=== PATIENT | female | born 1940 | race Caucasian/White ===

== ENCOUNTER 2016-11-25 17:50 | Emergency (ER) | payer OTHER, MEDICAID ==
[~2016-11-25] VITALS: Ht 177.8 cm; Wt 113.6 kg
[~2016-11-25 17:50] MED LIST: AMLO10TA4 PO; AMOX1TAB61 PO; ASPI-624; ASPI-650 PO; ASPI325T4 PO; CELE200C PO; DIAZ2TAB; DIAZ5TAB PO; DIAZEPAM; GABA300C10 PO; GABA600T2 PO; HYDR-3307; HYDR-3307 PO; LORA10CA PO; LOVA20TA2 PO; MECL25TA4 PO; METO10TA82 PO; NABU750T PO; Nabumetone; OMEP-110; OMEP-110 PO; ONDA4TAB7 PO; PANT20TA2; PANT40TA3 PO; PARO20TA4 PO; PARO20TA55 PO; PHENERGAN PO; PRAM0.255 PO; PRAM0.5T5 PO; ROPI2TAB3; ROPI2TAB3 PO; SOLI10TA PO; TOLT2CAP PO; [UNRECOGNIZED DRUG - OTHER] PO
[2016-11-25] MEDS ORDERED: ONDA4TAB10 PO (18:29)
[2016-11-25] MEDS ORDERED: LOSA1TAB12 PO (18:29)
[2016-11-25] MEDS ORDERED: SODIUM CHLORIDE FLUSH 10ML SYR IVF ONE (18:30)
[2016-11-25] MEDS ORDERED: MORPHINE SULFATE 4 MG/ML, 1ML IVPush PRN (18:30)
[2016-11-25] MEDS ORDERED: ASPIRIN 81 MG TABLET CHEW PO ONE (18:30)
[2016-11-25] MEDS ORDERED: ONDANSETRON 2MG/ML, 2ML IVPush ONE (18:30)
[2016-11-25] MEDS ORDERED: ASPIRIN 81 MG TABLET CHEW ONE (18:55)
[2016-11-25] MEDS ORDERED: ONDANSETRON 2MG/ML, 2ML ONE (18:55)
[2016-11-25] MEDS ORDERED: MORPHINE SULFATE 4 MG/ML, 1ML ONE (18:55)
[2016-11-25 19:02] LABS: BLOOD UREA NITROGEN 14 mg/dL (7-18)
[2016-11-25 19:06] LABS: IS PT STATUS REG ER OR PRE ER? YES
[2016-11-25] MEDS ORDERED: METOCLOPRAMIDE 5 MG/ML, 2ML ONE (19:11)
[2016-11-25] MEDS ORDERED: MAALOX/HYOSCYAMINE/LIDOCAINE 45 ML BOTTLE ONE (19:11)
[2016-11-25] MEDS ORDERED: METOCLOPRAMIDE 5 MG/ML, 2ML IVPush ONE (19:30)
[2016-11-25] MEDS ORDERED: MAALOX/HYOSCYAMINE/LIDOCAINE 45 ML BOTTLE PO ONE (19:30)
[2016-11-25 22:15] LABS: IS PT STATUS REG ER OR PRE ER? YES
[2016-11-25 22:45] VITALS: BP 175/82
== END 2016-11-26 00:08 | disposition home or self-care (01) ==
LOC: ED 20:09
DX: R11.2 Nausea with vomiting, unspecified (principal); I10 Essential (primary) hypertension; M19.90 Unspecified osteoarthritis, unspecified site; E78.5 Hyperlipidemia, unspecified; I25.10 Atherosclerotic heart disease of native coronary artery without angina pectoris; Z90.49 Acquired absence of other specified parts of digestive tract; Z90.710 Acquired absence of both cervix and uterus; Z88.6 Allergy status to analgesic agent
CPT/HCPCS: 36415; 71010; 74176; 80048; 82040; 84484; 85025; 93005; 96374; 96375; 99285; J2405; J2765

== ENCOUNTER 2016-11-28 18:07 | Emergency (ER) | payer OTHER, MEDICAID ==
[~2016-11-28] VITALS: Ht 177.8 cm; Wt 112.4 kg
[~2016-11-28 18:07] MED LIST changes: +LOSA1TAB12 PO; +ONDA4TAB10 PO
[2016-11-28] MEDS ORDERED: MORPHINE SULFATE 4 MG/ML, 1ML IVPush PRN (19:00)
[2016-11-28] MEDS ORDERED: SODIUM CHLORIDE FLUSH 10ML SYR IVF ONE (19:00)
[2016-11-28] MEDS ORDERED: ONDANSETRON 2MG/ML, 2ML IVPush ONE (19:00)
[2016-11-28] MEDS ORDERED: ACETAMINOPHEN 325 MG TABLET ONE (19:16)
[2016-11-28] MEDS ORDERED: ONDANSETRON ODT 4 MG ONE (19:16)
[2016-11-28 19:43] LABS: BLOOD UREA NITROGEN 14 mg/dL (7-18)
[2016-11-28 19:48] LABS: IS PT STATUS REG ER OR PRE ER? YES
[2016-11-28] MEDS ORDERED: ACETAMINOPHEN 325 MG TABLET PO ONE (20:00)
[2016-11-28] MEDS ORDERED: ONDANSETRON ODT 4 MG PO ONE (20:00)
[2016-11-28 20:24] VITALS: BP 145/74
== END 2016-11-28 20:39 | disposition home or self-care (01) ==
LOC: ED 20:20
DX: R51 Headache (principal); R11.0 Nausea; E87.1 Hypo-osmolality and hyponatremia; I10 Essential (primary) hypertension; Z88.6 Allergy status to analgesic agent; E78.5 Hyperlipidemia, unspecified; F17.210 Nicotine dependence, cigarettes, uncomplicated; Z88.8 Allergy status to other drugs, medicaments and biological substances
CPT/HCPCS: 36415; 70450; 71010; 80048; 82040; 83880; 84484; 85025; 93005; 99285; Q0162

== ENCOUNTER 2016-12-24 14:05 | Inpatient (IN) | payer OTHER, MEDICAID ==
[~2016-12-24] VITALS: Ht 177.8 cm; Wt 121.0 kg
[2016-12-24] MEDS ORDERED: ONDANSETRON 2MG/ML, 2ML IVPush ONE (14:30)
[2016-12-24] MEDS ORDERED: SODIUM CHLORIDE FLUSH 10ML SYR IVF ONE (14:30)
[2016-12-24] MEDS ORDERED: SODIUM CHLORIDE 0.9% 1,000ML IVBOLUS ONE (14:30)
[2016-12-24] MEDS ORDERED: ONDANSETRON 2MG/ML, 2ML ONE ×2 (14:55→18:31)
[2016-12-24 14:57] LABS: BLOOD UREA NITROGEN 8 mg/dL (7-18)
[2016-12-24 15:02] LABS: ASPARTATE AMINO TRANSFERASE 17 U/L (15-37)
[2016-12-24] MEDS ORDERED: OMNIPAQUE 350 MG/ML, 150 ML BOTTLE ONE (16:50)
[2016-12-24] MEDS ORDERED: SODIUM CHLORIDE 0.9% 1,000 ML IV ONE (18:19)
[2016-12-24] MEDS ORDERED: SODIUM CHLORIDE FLUSH 10ML SYR IVF PRN (18:30)
[2016-12-24] MEDS ORDERED: ONDANSETRON 2MG/ML, 2ML IVPush PRN ×2 (18:30→19:30)
[2016-12-24] MEDS ORDERED: LORazepam 2 MG/ML, 1ML ONE (18:31)
[2016-12-24] MEDS ORDERED: LORazepam 2 MG/ML, 1ML IVPush ONE (19:00)
[2016-12-24] MEDS ORDERED: D5%-0.45% NACL 1,000 ML IV SCH (19:18)
[2016-12-24] MEDS ORDERED: LABETALOL 5MG/ML 40ML VIAL IVPush PRN (19:30)
[2016-12-24] MEDS ORDERED: HEPARIN 5,000 UNITS/ML, 1ML SQ SCH (19:30)
[2016-12-24] MEDS ORDERED: HYDROCHLOROTHIAZIDE 25 MG TABLET PO ONE (19:30)
[2016-12-24] MEDS ORDERED: PROMETHAZINE 25 MG/ML, 1ML IM PRN (19:30)
[2016-12-24] MEDS ORDERED: NICOTINE 7 MG/24 HR PATCH.TD24 TD SCH (19:30)
[2016-12-24] MEDS ORDERED: PAROXETINE 20 MG TABLET PO SCH (21:00)
[2016-12-24] MEDS: PANTOPROZOLE 40MG TABLET PO SCH (22:13)
[2016-12-24] MEDS: PRAMIPEXOLE 0.25MG TABLET PO SCH (22:14)
[2016-12-24] MEDS: OXYBUTYNIN CHLORIDE 5 MG TABLET PO SCH (22:14)
[2016-12-24] MEDS: ROPINIROLE 1MG TABLET PO SCH (22:14)
[2016-12-24 22:23] VITALS: BP 159/84
[2016-12-25] MEDS: SODIUM CHLORIDE 0.9% 1,000 ML IV SCH ×2 (00:31→17:18)
[2016-12-25] MEDS ORDERED: GABAPENTIN 300 MG CAPSULE PO ONE (01:30)
[2016-12-25 01:59] VITALS: BP 164/99
[2016-12-25] MEDS: ONDANSETRON 2MG/ML, 2ML IVPush PRN ×2 (02:41→14:13)
[2016-12-25 05:33] LABS: BLOOD UREA NITROGEN 7 mg/dL (7-18)
[2016-12-25 06:55] VITALS: BP 162/83
[2016-12-25] MEDS: OXYBUTYNIN CHLORIDE 5 MG TABLET PO SCH ×3 (07:50→21:14)
[2016-12-25] MEDS: LOSARTAN 50MG TABLET PO SCH (07:50)
[2016-12-25] MEDS: METOCLOPRAMIDE 10MG TABLET PO SCH ×3 (07:51→17:18)
[2016-12-25] MEDS: PANTOPROZOLE 40MG TABLET PO SCH ×2 (07:51→19:21)
[2016-12-25] MEDS ORDERED: POTASSIUM CHLORIDE 40 MEQ in SODIUM CHLORIDE 0.9% 500 ML IV ONE (09:00)
[2016-12-25 13:06] VITALS: BP 135/85
[2016-12-25 19:23] VITALS: BP 150/79
[2016-12-25] MEDS: HYDROcodone/APAP 10/325 MG TABLET PO PRN (19:33)
[2016-12-25] MEDS ORDERED: PAROXETINE 20 MG TABLET PO SCH (21:00)
[2016-12-25] MEDS: PRAMIPEXOLE 0.25MG TABLET PO SCH (21:14)
[2016-12-25] MEDS: ROPINIROLE 1MG TABLET PO SCH (21:15)
[2016-12-26 01:16] VITALS: BP 175/99
[2016-12-26] MEDS: ONDANSETRON 2MG/ML, 2ML IVPush PRN ×2 (02:43→12:53)
[2016-12-26] MEDS ORDERED: ENALAPRILAT 1.25 MG/ML, 2ML IV PRN (03:00)
[2016-12-26 03:05] VITALS: BP 157/79
[2016-12-26 05:09] LABS: BLOOD UREA NITROGEN 5 mg/dL (7-18)
[2016-12-26 07:27] VITALS: BP 152/68
[2016-12-26] MEDS ORDERED: PROMETHAZINE 12.5 MG SUPP PR PRN ×2 (08:00→09:50)
[2016-12-26] MEDS ORDERED: POTASSIUM CHLORIDE 20 MEQ TAB.ER.PRT PO ONE (09:30)
[2016-12-26] MEDS: METOCLOPRAMIDE 10MG TABLET PO SCH ×3 (09:44→17:30)
[2016-12-26] MEDS: OXYBUTYNIN CHLORIDE 5 MG TABLET PO SCH ×3 (09:44→20:52)
[2016-12-26] MEDS: PANTOPROZOLE 40MG TABLET PO SCH ×2 (09:44→19:44)
[2016-12-26] MEDS: LOSARTAN 50MG TABLET PO SCH (09:44)
[2016-12-26] MEDS: HYDROcodone/APAP 10/325 MG TABLET PO PRN ×2 (10:21→17:30)
[2016-12-26 12:24] VITALS: BP 169/89
[2016-12-26] MEDS: SODIUM CHLORIDE 0.9% 1,000 ML IV SCH ×2 (12:57→19:45)
[2016-12-26 18:45] VITALS: BP 104/65
[2016-12-26] MEDS: PRAMIPEXOLE 0.25MG TABLET PO SCH (20:52)
[2016-12-26] MEDS: ROPINIROLE 1MG TABLET PO SCH (20:53)
[2016-12-27] MEDS: HYDROcodone/APAP 10/325 MG TABLET PO PRN ×3 (00:59→12:38)
[2016-12-27 01:37] VITALS: BP 118/71
[2016-12-27 05:21] LABS: BLOOD UREA NITROGEN 9 mg/dL (7-18)
[2016-12-27 06:55] VITALS: BP 144/83
[2016-12-27] MEDS: LOSARTAN 50MG TABLET PO SCH (09:33)
[2016-12-27] MEDS: METOCLOPRAMIDE 10MG TABLET PO SCH ×3 (09:33→17:13)
[2016-12-27] MEDS: OXYBUTYNIN CHLORIDE 5 MG TABLET PO SCH ×2 (09:33→17:13)
[2016-12-27] MEDS: PANTOPROZOLE 40MG TABLET PO SCH (09:33)
[2016-12-27 12:17] VITALS: BP 175/97
[2016-12-27] MEDS: LACTOBACILLUS 1GM/ PACKET PO SCH ×2 (12:32→17:13)
[2016-12-27] MEDS ORDERED: ACID1GRA2 PO (13:15)
[2016-12-27] MEDS ORDERED: LOSA50TA2 PO (13:15)
[2016-12-27] MEDS ORDERED: PANT40TA5 PO (13:23)
[2016-12-27 18:21] VITALS: BP 140/80
[2016-12-27] MEDS ORDERED: PARO10TA24 PO (18:50)
[2016-12-29 18:07] LABS: HELICOBACTER PYLORI IGG <0.4 U/mL (0.0-0.8); HELICOBACTER PYLORI IGM <9.0 units (0.0-8.9)
== END 2016-12-27 19:54 | disposition home or self-care (01) | DRG 392 ==
LOC: ED 14:36 → EDIP 18:19 → INTOOBSV 18:19 → 3NE 20:18 → OBSVTOIN 12-25 10:03
PROVIDERS: ADMIT Family Medicine; ATTEND Family Medicine
DX: K52.9 Noninfective gastroenteritis and colitis, unspecified (principal); E87.1 Hypo-osmolality and hyponatremia; E66.9 Obesity, unspecified; E78.5 Hyperlipidemia, unspecified; E86.0 Dehydration; F17.210 Nicotine dependence, cigarettes, uncomplicated; G25.81 Restless legs syndrome; I10 Essential (primary) hypertension; I25.10 Atherosclerotic heart disease of native coronary artery without angina pectoris; Z96.652 Presence of left artificial knee joint; J44.9 Chronic obstructive pulmonary disease, unspecified; K21.9 Gastro-esophageal reflux disease without esophagitis; K44.9 Diaphragmatic hernia without obstruction or gangrene; M19.90 Unspecified osteoarthritis, unspecified site; N32.81 Overactive bladder; Z81.8 Family history of other mental and behavioral disorders; Z95.5 Presence of coronary angioplasty implant and graft; Z90.710 Acquired absence of both cervix and uterus; I25.2 Old myocardial infarction; Z90.49 Acquired absence of other specified parts of digestive tract; Z88.8 Allergy status to other drugs, medicaments and biological substances; Z68.38 Body mass index [BMI] 38.0-38.9, adult
CPT/HCPCS: 36415; 74177; 80048; 80053; 81001; 82436; 82533; 82570; 83690; 83935; 84133; 84300; 84443; 85025; 86677; 87086; 87324; 89055; 93005; 96361; 96374; 96375; 96376; G0378; J1644; J2405; J3480; Q9967; J2060; J7030; J7040

== ENCOUNTER 2017-01-04 15:26 | Inpatient (IN) | payer OTHER, MEDICAID ==
[~2017-01-04] VITALS: Ht 177.8 cm; Wt 119.6 kg
[~2017-01-04 15:26] MED LIST changes: +ACID1GRA2 PO; +LOSA50TA2 PO; +PANT40TA5 PO; +PARO10TA24 PO
[2017-01-04] MEDS ORDERED: ONDANSETRON ODT 4 MG ONE (15:51)
[2017-01-04] MEDS ORDERED: SODIUM CHLORIDE 0.9% 1,000ML IVBOLUS ONE (16:00)
[2017-01-04] MEDS ORDERED: MAALOX/HYOSCYAMINE/LIDOCAINE 45 ML BTL PO ONE (16:00)
[2017-01-04] MEDS ORDERED: ONDANSETRON 2MG/ML, 2ML IVPush ONE (16:00)
[2017-01-04] MEDS ORDERED: SODIUM CHLORIDE FLUSH 10ML SYR IVF ONE (16:00)
[2017-01-04] MEDS ORDERED: MAALOX/HYOSCYAMINE/LIDOCAINE 45 ML BTL ONE (16:10)
[2017-01-04] MEDS ORDERED: ONDANSETRON 2MG/ML, 2ML ONE (16:10)
[2017-01-04] MEDS ORDERED: LOVA10TA PO (16:24)
[2017-01-04] MEDS ORDERED: METO5TAB57 PO (16:24)
[2017-01-04] MEDS ORDERED: PANT20TA2 PO (16:24)
[2017-01-04] MEDS ORDERED: ONDA4TAB10 PO (16:24)
[2017-01-04 16:30] LABS: HEMOGLOBIN 13.7 g/dL (11.7-16.4); WHITE BLOOD COUNT 6.7 x10^3/uL (3.4-10)
[2017-01-04] MEDS ORDERED: FAMOTIDINE 20 MG/2 ML IVP ONE (16:30)
[2017-01-04] MEDS ORDERED: FAMOTIDINE 20 MG/2 ML ONE (16:43)
[2017-01-04 16:46] LABS: ASPARTATE AMINO TRANSFERASE 16 U/L (15-37); BLOOD UREA NITROGEN 11 mg/dL (7-18)
[2017-01-04 16:48] LABS: IS PT STATUS REG ER OR PRE ER? YES
[2017-01-04] MEDS ORDERED: METOCLOPRAMIDE 5 MG/ML, 2ML ONE (17:51)
[2017-01-04] MEDS ORDERED: METOCLOPRAMIDE 5 MG/ML, 2ML IVPush ONE (18:00)
[2017-01-04] MEDS ORDERED: ONDANSETRON ODT 4 MG PO PRN (20:30)
[2017-01-04] MEDS ORDERED: ENALAPRILAT 1.25 MG/ML, 2ML IVPush PRN (20:30)
[2017-01-04] MEDS ORDERED: POLYETHYLENE GLYCOL 17 GM PACKET PO PRN (20:30)
[2017-01-04 20:50] VITALS: BP 145/80
[2017-01-04] MEDS ORDERED: NICOTINE GUM 2 MG BC PRN (21:30)
[2017-01-04] MEDS: PAROXETINE 20 MG TABLET PO SCH (21:42)
[2017-01-04] MEDS: LOVASTATIN 40 MG TABLET PO SCH (21:42)
[2017-01-04] MEDS: PANTOPROZOLE 40MG TABLET PO SCH (21:43)
[2017-01-04] MEDS: AMLODIPINE 5 MG TABLET PO SCH (21:43)
[2017-01-04] MEDS: PRAMIPEXOLE 0.25MG TABLET PO SCH (21:44)
[2017-01-04] MEDS: METOCLOPRAMIDE 10MG TABLET PO SCH (21:44)
[2017-01-04] MEDS: ENOXAPARIN 40 MG/0.4 ML SQ SCH (21:45)
[2017-01-04] MEDS: ROPINIROLE 1MG TABLET PO SCH (21:45)
[2017-01-04] MEDS: ONDANSETRON 2MG/ML, 2ML IVPush PRN (22:45)
[2017-01-04 22:56] LABS: IS PT STATUS REG ER OR PRE ER? NO
[2017-01-05 00:17] VITALS: BP 165/96
[2017-01-05] MEDS: METOCLOPRAMIDE 5 MG/ML, 2ML IVPush PRN (03:01)
[2017-01-05] MEDS: HYDROcodone/APAP 5/325 TABLET PO PRN ×3 (03:28→22:11)
[2017-01-05 06:49] VITALS: BP 142/74
[2017-01-05] MEDS: METOCLOPRAMIDE 10MG TABLET PO SCH ×4 (11:00→22:09)
[2017-01-05] MEDS: LOSARTAN 50MG TABLET PO SCH (11:58)
[2017-01-05] MEDS: PANTOPROZOLE 40MG TABLET PO SCH ×2 (11:58→22:09)
[2017-01-05] MEDS: SENNA/DOCUSATE TABLET PO SCH (11:59)
[2017-01-05 14:30] VITALS: BP 122/80
[2017-01-05 20:42] VITALS: BP 124/72
[2017-01-05] MEDS: LOVASTATIN 40 MG TABLET PO SCH (22:08)
[2017-01-05] MEDS: ROPINIROLE 1MG TABLET PO SCH (22:08)
[2017-01-05] MEDS: AMLODIPINE 5 MG TABLET PO SCH (22:10)
[2017-01-05] MEDS: PRAMIPEXOLE 0.25MG TABLET PO SCH (22:10)
[2017-01-05] MEDS: PAROXETINE 20 MG TABLET PO SCH (22:10)
[2017-01-05] MEDS: ENOXAPARIN 40 MG/0.4 ML SQ SCH (22:11)
[2017-01-06 02:08] VITALS: BP 148/80
[2017-01-06] MEDS: ONDANSETRON 2MG/ML, 2ML IVPush PRN ×2 (04:53→11:18)
[2017-01-06] MEDS: HYDROcodone/APAP 5/325 TABLET PO PRN ×4 (04:58→22:55)
[2017-01-06 07:34] VITALS: BP 126/70
[2017-01-06] MEDS: LOSARTAN 50MG TABLET PO SCH (09:29)
[2017-01-06] MEDS: PANTOPROZOLE 40MG TABLET PO SCH ×2 (09:29→20:54)
[2017-01-06] MEDS: SENNA/DOCUSATE TABLET PO SCH (09:29)
[2017-01-06] MEDS: METOCLOPRAMIDE 10MG TABLET PO SCH ×4 (09:29→20:54)
[2017-01-06] MEDS: METOCLOPRAMIDE 5 MG/ML, 2ML IVPush PRN (14:20)
[2017-01-06 14:27] VITALS: BP 130/82
[2017-01-06] MEDS: ACETAMINOPHEN 325 MG TABLET PO PRN (19:55)
[2017-01-06] MEDS: PRAMIPEXOLE 0.25MG TABLET PO SCH (20:54)
[2017-01-06] MEDS: AMLODIPINE 5 MG TABLET PO SCH (20:54)
[2017-01-06] MEDS: PAROXETINE 20 MG TABLET PO SCH (20:54)
[2017-01-06] MEDS: LOVASTATIN 40 MG TABLET PO SCH (20:55)
[2017-01-06] MEDS: ROPINIROLE 1MG TABLET PO SCH (20:55)
[2017-01-06] MEDS: ENOXAPARIN 40 MG/0.4 ML SQ SCH (21:44)
[2017-01-06 21:52] VITALS: BP 147/77
[2017-01-07 02:20] VITALS: BP 130/81
[2017-01-07] MEDS: ONDANSETRON 2MG/ML, 2ML IVPush PRN ×2 (03:16→10:27)
[2017-01-07] MEDS: HYDROcodone/APAP 5/325 TABLET PO PRN ×2 (03:43→10:28)
[2017-01-07 06:24] VITALS: BP 123/76
[2017-01-07] MEDS: ACETAMINOPHEN 325 MG TABLET PO PRN (06:49)
[2017-01-07 06:59] LABS: BLOOD UREA NITROGEN 6 mg/dL (7-18)
[2017-01-07] MEDS: METOCLOPRAMIDE 10MG TABLET PO SCH ×4 (07:00→20:37)
[2017-01-07] MEDS: SENNA/DOCUSATE TABLET PO SCH (09:00)
[2017-01-07] MEDS: LOSARTAN 50MG TABLET PO SCH (10:27)
[2017-01-07] MEDS: PANTOPROZOLE 40MG TABLET PO SCH ×2 (10:27→20:37)
[2017-01-07] MEDS ORDERED: PROMETHAZINE 12.5 MG SUPP PR PRN (11:40)
[2017-01-07] MEDS ORDERED: PROMETHAZINE 12.5 MG SUPP PR ONE (15:30)
[2017-01-07 15:31] VITALS: BP 128/74
[2017-01-07] MEDS ORDERED: ENALAPRILAT 1.25 MG/ML, 2ML IVPush PRN (16:30)
[2017-01-07] MEDS ORDERED: HYDROcodone/APAP 10/325 MG TABLET PO ONE (19:00)
[2017-01-07 19:13] VITALS: BP 116/76
[2017-01-07] MEDS: ROPINIROLE 1MG TABLET PO SCH (20:36)
[2017-01-07] MEDS: PAROXETINE 20 MG TABLET PO SCH (20:37)
[2017-01-07] MEDS: AMLODIPINE 5 MG TABLET PO SCH (20:37)
[2017-01-07] MEDS: LOVASTATIN 40 MG TABLET PO SCH (20:38)
[2017-01-07] MEDS: PRAMIPEXOLE 0.25MG TABLET PO SCH (20:38)
[2017-01-07] MEDS: ENOXAPARIN 40 MG/0.4 ML SQ SCH (20:40)
[2017-01-08] MEDS: ONDANSETRON 2MG/ML, 2ML IVPush PRN ×2 (01:20→10:17)
[2017-01-08 01:53] VITALS: BP 126/74
[2017-01-08 05:09] LABS: HEMATOCRIT 39.9 % (34.6-47.8); HEMOGLOBIN 13.2 g/dL (11.7-16.4); WHITE BLOOD COUNT 6.7 x10^3/uL (3.4-10)
[2017-01-08 05:18] LABS: BLOOD UREA NITROGEN 9 mg/dL (7-18)
[2017-01-08] MEDS: METOCLOPRAMIDE 10MG TABLET PO SCH ×4 (06:28→21:32)
[2017-01-08 07:20] VITALS: BP 121/75
[2017-01-08] MEDS: LOSARTAN 50MG TABLET PO SCH (07:44)
[2017-01-08] MEDS: PANTOPROZOLE 40MG TABLET PO SCH ×2 (07:44→21:32)
[2017-01-08] MEDS: SENNA/DOCUSATE TABLET PO SCH (07:44)
[2017-01-08] MEDS: ACETAMINOPHEN 325 MG TABLET PO PRN ×2 (07:44→12:59)
[2017-01-08 14:34] VITALS: BP 132/74
[2017-01-08] MEDS: HYDROcodone/APAP 5/325 TABLET PO PRN ×2 (15:37→21:35)
[2017-01-08 19:00] VITALS: BP 138/80
[2017-01-08] MEDS: PAROXETINE 20 MG TABLET PO SCH (21:32)
[2017-01-08] MEDS: LOVASTATIN 40 MG TABLET PO SCH (21:33)
[2017-01-08] MEDS: AMLODIPINE 5 MG TABLET PO SCH (21:33)
[2017-01-08] MEDS: ROPINIROLE 1MG TABLET PO SCH (21:33)
[2017-01-08] MEDS: PRAMIPEXOLE 0.25MG TABLET PO SCH (21:33)
[2017-01-08] MEDS: ENOXAPARIN 40 MG/0.4 ML SQ SCH (21:36)
[2017-01-09 01:59] VITALS: BP 143/82
[2017-01-09] MEDS: HYDROcodone/APAP 5/325 TABLET PO PRN ×2 (03:58→10:14)
[2017-01-09] MEDS: METOCLOPRAMIDE 10MG TABLET PO SCH ×3 (06:15→15:48)
[2017-01-09 08:16] VITALS: BP 143/81
[2017-01-09] MEDS: LOSARTAN 50MG TABLET PO SCH (10:11)
[2017-01-09] MEDS: PANTOPROZOLE 40MG TABLET PO SCH (10:11)
[2017-01-09] MEDS: SENNA/DOCUSATE TABLET PO SCH (10:12)
[2017-01-09 13:46] VITALS: BP 145/88
[2017-01-09] MEDS ORDERED: AMLO5TAB2 PO (14:25)
== END 2017-01-09 16:41 | disposition home or self-care (01) | DRG 103 ==
LOC: ED 18:26 → EDIP 19:22 → 3NE 20:44
PROVIDERS: ADMIT Family Medicine; ATTEND Family Medicine
DX: G43.A0 Cyclical vomiting, in migraine, not intractable (principal); K44.9 Diaphragmatic hernia without obstruction or gangrene; E78.5 Hyperlipidemia, unspecified; F17.210 Nicotine dependence, cigarettes, uncomplicated; G89.29 Other chronic pain; G25.81 Restless legs syndrome; I10 Essential (primary) hypertension; I25.10 Atherosclerotic heart disease of native coronary artery without angina pectoris; M54.5 Low back pain; T40.695A Adverse effect of other narcotics, initial encounter; K59.09 Other constipation; M17.0 Bilateral primary osteoarthritis of knee; F41.9 Anxiety disorder, unspecified; E86.0 Dehydration; R63.4 Abnormal weight loss; Z88.6 Allergy status to analgesic agent; Z88.8 Allergy status to other drugs, medicaments and biological substances; I25.2 Old myocardial infarction; Z82.49 Family history of ischemic heart disease and other diseases of the circulatory system; Z80.9 Family history of malignant neoplasm, unspecified; Z81.8 Family history of other mental and behavioral disorders; Z83.6 Family history of other diseases of the respiratory system; Z71.6 Tobacco abuse counseling; Z90.710 Acquired absence of both cervix and uterus; Y92.89 Other specified places as the place of occurrence of the external cause; K31.84 Gastroparesis; K52.9 Noninfective gastroenteritis and colitis, unspecified; K29.70 Gastritis, unspecified, without bleeding
CPT/HCPCS: 36415; 74022; 80048; 80053; 81001; 83690; 84484; 85025; 87086; 93005; 96361; 96374; 96375; J1650; J2405; Q0162; J2765; J7030; S0028

== ENCOUNTER 2017-01-22 16:01 | Emergency (ER) | payer OTHER, MEDICAID ==
[~2017-01-22] VITALS: Ht 177.8 cm; Wt 115.0 kg
[~2017-01-22 16:01] MED LIST changes: +AMLO5TAB2 PO; +LOVA10TA PO; +METO5TAB57 PO; +PANT20TA2 PO
[2017-01-22] MEDS ORDERED: SODIUM CHLORIDE 0.9% 1,000 ML IV ONE (16:38)
[2017-01-22 16:54] LABS: HEMATOCRIT 43.9 % (34.6-47.8); HEMOGLOBIN 14.5 g/dL (11.7-16.4); WHITE BLOOD COUNT 6.8 x10^3/uL (3.4-10)
[2017-01-22] MEDS ORDERED: SODIUM CHLORIDE FLUSH 10ML SYR IVF ONE (17:00)
[2017-01-22] MEDS ORDERED: SODIUM CHLORIDE 0.9% 1,000ML IVBOLUS ONE (17:00)
[2017-01-22] MEDS ORDERED: ONDANSETRON 2MG/ML, 2ML IVPush ONE (17:00)
[2017-01-22 17:07] LABS: ASPARTATE AMINO TRANSFERASE 15 U/L (15-37); BLOOD UREA NITROGEN 12 mg/dL (7-18)
[2017-01-22] MEDS ORDERED: ONDANSETRON 2MG/ML, 2ML ONE (17:16)
[2017-01-22 19:05] VITALS: BP 155/86
[2017-01-23] MEDS ORDERED: PARO20TA4 PO (20:54)
[2017-01-23] MEDS ORDERED: AMLO10TA4 PO (20:57)
== END 2017-01-22 19:06 | disposition home or self-care (01) ==
LOC: ED 17:08
DX: R11.2 Nausea with vomiting, unspecified (principal); R10.13 Epigastric pain; I10 Essential (primary) hypertension; E78.5 Hyperlipidemia, unspecified; I25.10 Atherosclerotic heart disease of native coronary artery without angina pectoris
CPT/HCPCS: 36415; 74022; 80053; 83605; 83690; 84484; 85025; 85610; 85730; 93005; 96361; 96374; 99285; J2405; J7030

== ENCOUNTER 2017-01-23 15:41 | Inpatient (IN) | payer OTHER, MEDICAID ==
[~2017-01-23] VITALS: Ht 177.8 cm; Wt 115.2 kg
[~2017-01-23 15:41] MED LIST changes: -ACID1GRA2 PO; +ACID1GRA3 PO; +ASPI325T17 PO; -ASPI325T4 PO; -PARO10TA24 PO; +PARO10TA56 PO; -PARO20TA55 PO; +PARO20TA98 PO; -SOLI10TA PO; +SOLI10TA2 PO
[2017-01-23] MEDS ORDERED: FAMOTIDINE 20 MG/2 ML IVP ONE (16:00)
[2017-01-23] MEDS ORDERED: ONDANSETRON 2MG/ML, 2ML IVPush ONE ×2 (16:00→19:00)
[2017-01-23] MEDS ORDERED: SODIUM CHLORIDE 0.9% 1,000ML IVBOLUS ONE (16:00)
[2017-01-23] MEDS ORDERED: SODIUM CHLORIDE FLUSH 10ML SYR IVF ONE (16:00)
[2017-01-23 16:26] LABS: HEMATOCRIT 42.9 % (34.6-47.8); HEMOGLOBIN 14.2 g/dL (11.7-16.4); WHITE BLOOD COUNT 6.6 x10^3/uL (3.4-10)
[2017-01-23 16:37] LABS: BLOOD UREA NITROGEN 12 mg/dL (7-18)
[2017-01-23 16:42] LABS: ASPARTATE AMINO TRANSFERASE 15 U/L (15-37)
[2017-01-23] MEDS ORDERED: FAMOTIDINE 20 MG/2 ML ONE (16:56)
[2017-01-23] MEDS ORDERED: ONDANSETRON 2MG/ML, 2ML ONE ×2 (16:56→18:36)
[2017-01-23] MEDS ORDERED: MAALOX/HYOSCYAMINE/LIDOCAINE 45 ML BTL PO ONE (17:30)
[2017-01-23] MEDS ORDERED: MAALOX/HYOSCYAMINE/LIDOCAINE 45 ML BTL ONE (17:35)
[2017-01-23 18:14] LABS: PATH.CAST-FLAG NOT PRESENT; SPERM-FLAG NOT PRESENT; SRC-FLAG NOT PRESENT; XTAL-FLAG NOT PRESENT; YLC-FLAG NOT PRESENT
[2017-01-23] MEDS ORDERED: hydrALAzine 20 MG/ML, 1ML IVPush PRN (20:00)
[2017-01-23] MEDS ORDERED: HYDROcodone/APAP 10/325 MG TABLET ONE (20:13)
[2017-01-23] MEDS: HYDROcodone/APAP 10/325 MG TABLET PO PRN (20:14)
[2017-01-23] MEDS ORDERED: PARO20TA4 PO (20:54)
[2017-01-23] MEDS ORDERED: AMLO10TA4 PO (20:57)
[2017-01-23 20:58] VITALS: BP 168/94
[2017-01-23] MEDS ORDERED: PRAMIPEXOLE 0.25MG TABLET PO SCH (21:00)
[2017-01-23] MEDS: PRAMIPEXOLE 0.5MG TABLET PO SCH (21:00)
[2017-01-23] MEDS: SIMVASTATIN 5 MG TABLET PO SCH (22:30)
[2017-01-23] MEDS: OXYBUTYNIN CHLORIDE 5 MG TABLET PO SCH (22:30)
[2017-01-23] MEDS: AMLODIPINE 5 MG TABLET PO SCH (22:31)
[2017-01-23] MEDS: PANTOPRAZOLE 20MG TABLET PO SCH (22:31)
[2017-01-23] MEDS: ROPINIROLE 1MG TABLET PO SCH (22:31)
[2017-01-23] MEDS: ENOXAPARIN 40 MG/0.4 ML SQ SCH (22:32)
[2017-01-23] MEDS: NICOTINE 7 MG/24 HR PATCH.TD24 TD SCH (22:32)
[2017-01-23] MEDS: METOCLOPRAMIDE 5 MG/ML, 2ML IVPush SCH (22:32)
[2017-01-23] MEDS: SODIUM CHLORIDE 0.9% 1,000 ML IV SCH (22:50)
[2017-01-24] MEDS: ONDANSETRON 2MG/ML, 2ML IVPush PRN ×4 (00:19→22:38)
[2017-01-24 01:42] VITALS: BP 159/86
[2017-01-24] MEDS: PROMETHAZINE 25 MG SUPP PR PRN (04:01)
[2017-01-24 05:59] LABS: BLOOD UREA NITROGEN 8 mg/dL (7-18)
[2017-01-24] MEDS: SODIUM CHLORIDE 0.9% 1,000 ML IV SCH ×3 (06:13→22:32)
[2017-01-24 07:36] VITALS: BP 148/76
[2017-01-24] MEDS: PANTOPRAZOLE 20MG TABLET PO SCH ×2 (09:01→20:00)
[2017-01-24] MEDS: OXYBUTYNIN CHLORIDE 5 MG TABLET PO SCH ×3 (09:01→20:01)
[2017-01-24] MEDS: LOSARTAN 50MG TABLET PO SCH (09:01)
[2017-01-24 14:37] VITALS: BP 148/86
[2017-01-24] MEDS: HYDROcodone/APAP 10/325 MG TABLET PO PRN (15:59)
[2017-01-24 19:50] VITALS: BP 142/82
[2017-01-24] MEDS: SIMVASTATIN 5 MG TABLET PO SCH (19:59)
[2017-01-24] MEDS: ROPINIROLE 1MG TABLET PO SCH (20:00)
[2017-01-24] MEDS: PRAMIPEXOLE 0.5MG TABLET PO SCH (20:01)
[2017-01-24] MEDS: AMLODIPINE 5 MG TABLET PO SCH (20:01)
[2017-01-24] MEDS: ENOXAPARIN 40 MG/0.4 ML SQ SCH (20:02)
[2017-01-24] MEDS: METOCLOPRAMIDE 5 MG/ML, 2ML IVPush SCH (20:02)
[2017-01-24] MEDS: NICOTINE 7 MG/24 HR PATCH.TD24 TD SCH (20:02)
[2017-01-24] MEDS ORDERED: PRAMIPEXOLE 0.5MG TABLET PO SCH (21:00)
[2017-01-25 01:44] VITALS: BP 124/82
[2017-01-25] MEDS: ONDANSETRON 2MG/ML, 2ML IVPush PRN ×4 (03:26→19:34)
[2017-01-25] MEDS: SODIUM CHLORIDE 0.9% 1,000 ML IV SCH ×3 (05:46→21:43)
[2017-01-25 07:39] LABS: ASPARTATE AMINO TRANSFERASE 11 U/L (15-37); BLOOD UREA NITROGEN 6 mg/dL (7-18)
[2017-01-25 08:08] VITALS: BP 160/95
[2017-01-25] MEDS: LOSARTAN 50MG TABLET PO SCH (08:38)
[2017-01-25] MEDS: OXYBUTYNIN CHLORIDE 5 MG TABLET PO SCH ×3 (08:38→21:39)
[2017-01-25] MEDS: PANTOPRAZOLE 20MG TABLET PO SCH ×2 (08:38→21:39)
[2017-01-25 13:06] VITALS: BP 136/79
[2017-01-25] MEDS: HYDROcodone/APAP 10/325 MG TABLET PO PRN (16:19)
[2017-01-25 18:43] VITALS: BP 164/93
[2017-01-25] MEDS: METOCLOPRAMIDE 5 MG/ML, 2ML IVPush SCH (20:21)
[2017-01-25] MEDS: NICOTINE 7 MG/24 HR PATCH.TD24 TD SCH (20:24)
[2017-01-25] MEDS: PROMETHAZINE 25 MG SUPP PR PRN (20:56)
[2017-01-25] MEDS: SIMVASTATIN 5 MG TABLET PO SCH (21:39)
[2017-01-25] MEDS: PRAMIPEXOLE 0.5MG TABLET PO SCH (21:39)
[2017-01-25] MEDS: ENOXAPARIN 40 MG/0.4 ML SQ SCH (21:39)
[2017-01-25] MEDS: AMLODIPINE 5 MG TABLET PO SCH (21:40)
[2017-01-26 01:01] VITALS: BP 131/79
[2017-01-26] MEDS: ONDANSETRON 2MG/ML, 2ML IVPush PRN ×2 (03:05→14:28)
[2017-01-26] MEDS: HYDROcodone/APAP 10/325 MG TABLET PO PRN ×3 (03:27→19:51)
[2017-01-26] MEDS: PROMETHAZINE 25 MG SUPP PR PRN ×3 (05:56→23:06)
[2017-01-26 07:04] VITALS: BP 121/72
[2017-01-26] MEDS: OXYBUTYNIN CHLORIDE 5 MG TABLET PO SCH ×3 (08:33→19:50)
[2017-01-26] MEDS: PANTOPRAZOLE 20MG TABLET PO SCH ×2 (08:33→19:49)
[2017-01-26] MEDS: LOSARTAN 50MG TABLET PO SCH (08:34)
[2017-01-26 13:51] VITALS: BP 114/68
[2017-01-26] MEDS: METOCLOPRAMIDE 10MG TABLET PO SCH ×2 (16:57→21:00)
[2017-01-26 19:18] LABS: BLOOD UREA NITROGEN 9 mg/dL (7-18)
[2017-01-26 19:19] VITALS: BP 146/86
[2017-01-26] MEDS: METOCLOPRAMIDE 5 MG/ML, 2ML IVPush SCH (19:49)
[2017-01-26] MEDS: AMLODIPINE 5 MG TABLET PO SCH (19:50)
[2017-01-26] MEDS: ENOXAPARIN 40 MG/0.4 ML SQ SCH (19:51)
[2017-01-26] MEDS: NICOTINE 7 MG/24 HR PATCH.TD24 TD SCH (19:51)
[2017-01-26] MEDS: SIMVASTATIN 5 MG TABLET PO SCH (19:52)
[2017-01-27] MEDS: HYDROcodone/APAP 10/325 MG TABLET PO PRN ×3 (00:13→17:17)
[2017-01-27 00:56] VITALS: BP 120/69
[2017-01-27 06:46] VITALS: BP 133/80
[2017-01-27] MEDS ORDERED: ONDANSETRON 4 MG TABLET PO PRN (07:30)
[2017-01-27] MEDS ORDERED: METOCLOPRAMIDE 10MG TABLET PO PRN (07:30)
[2017-01-27] MEDS: PANTOPRAZOLE 20MG TABLET PO SCH ×2 (08:12→20:56)
[2017-01-27] MEDS: METOCLOPRAMIDE 10MG TABLET PO SCH ×5 (08:13→20:57)
[2017-01-27] MEDS: LOSARTAN 50MG TABLET PO SCH (08:13)
[2017-01-27] MEDS: OXYBUTYNIN CHLORIDE 5 MG TABLET PO SCH ×3 (08:13→20:57)
[2017-01-27] MEDS: ONDANSETRON 2MG/ML, 2ML IVPush PRN ×3 (11:07→20:28)
[2017-01-27 13:49] VITALS: BP 130/69
[2017-01-27] MEDS: SUCRALFATE 1 GM/10 ML UDC PO SCH ×2 (18:21→20:56)
[2017-01-27] MEDS ORDERED: OMEP20CA14 PO (18:47)
[2017-01-27] MEDS ORDERED: SUCR1TAB33 PO (18:47)
[2017-01-27] MEDS ORDERED: SIMV5TAB5 PO (18:47)
[2017-01-27 19:51] VITALS: BP 135/85
[2017-01-27] MEDS: NICOTINE 7 MG/24 HR PATCH.TD24 TD SCH (20:00)
[2017-01-27] MEDS: SIMVASTATIN 5 MG TABLET PO SCH (20:56)
[2017-01-27] MEDS: AMLODIPINE 5 MG TABLET PO SCH (20:57)
== END 2017-01-27 21:15 | disposition home health service (06) | DRG 690 ==
LOC: ED 17:15 → INTOOBSV 19:28 → EDIP 19:28 → 3NE 20:30 → OBSVTOIN 01-25 14:20
PROVIDERS: ADMIT Family Medicine; ATTEND Family Medicine
DX: N39.0 Urinary tract infection, site not specified (principal); E87.1 Hypo-osmolality and hyponatremia; E86.0 Dehydration; I10 Essential (primary) hypertension; F32.9 Major depressive disorder, single episode, unspecified; E78.5 Hyperlipidemia, unspecified; I25.10 Atherosclerotic heart disease of native coronary artery without angina pectoris; G25.81 Restless legs syndrome; F17.210 Nicotine dependence, cigarettes, uncomplicated; G89.29 Other chronic pain; M19.90 Unspecified osteoarthritis, unspecified site; F41.9 Anxiety disorder, unspecified; K21.9 Gastro-esophageal reflux disease without esophagitis; E66.9 Obesity, unspecified; Z95.5 Presence of coronary angioplasty implant and graft; Z90.710 Acquired absence of both cervix and uterus; Z90.49 Acquired absence of other specified parts of digestive tract; I25.2 Old myocardial infarction; Z88.8 Allergy status to other drugs, medicaments and biological substances; Z81.8 Family history of other mental and behavioral disorders; Z68.36 Body mass index [BMI] 36.0-36.9, adult; K52.9 Noninfective gastroenteritis and colitis, unspecified
CPT/HCPCS: 36415; 80048; 80053; 81001; 85025; 87086; 93005; 96361; 96374; 96375; G0378; J1650; J2405; J2765; J7030; S0028

== ENCOUNTER 2017-02-13 13:16 | Observation (INO) | payer OTHER, MEDICAID ==
[~2017-02-13] VITALS: Ht 175.3 cm; Wt 120.0 kg
[~2017-02-13 13:16] MED LIST changes: +OMEP20CA14 PO; +SIMV5TAB5 PO; +SUCR1TAB33 PO
[2017-02-13] MEDS ORDERED: SODIUM CHLORIDE 0.9% 1,000 ML IV ONE ×2 (13:35→14:30)
[2017-02-13 13:55] LABS: HEMATOCRIT 40.3 % (34.6-47.8); HEMOGLOBIN 13.6 g/dL (11.7-16.4); WHITE BLOOD COUNT 6.9 x10^3/uL (3.4-10)
[2017-02-13] MEDS ORDERED: ONDANSETRON 2MG/ML, 2ML IVPush ONE (14:00)
[2017-02-13] MEDS ORDERED: SODIUM CHLORIDE FLUSH 10ML SYR IVF ONE (14:00)
[2017-02-13 14:06] LABS: ASPARTATE AMINO TRANSFERASE 17 U/L (15-37); BLOOD UREA NITROGEN 10 mg/dL (7-18)
[2017-02-13] MEDS ORDERED: ONDANSETRON 2MG/ML, 2ML ONE (14:23)
[2017-02-13] MEDS ORDERED: DIPHENHYDRAMINE 50 MG/ML, 1ML IVPush ONE (14:30)
[2017-02-13] MEDS ORDERED: METOCLOPRAMIDE 5 MG/ML, 2ML IVPush ONE (14:30)
[2017-02-13] MEDS ORDERED: DIPHENHYDRAMINE 50 MG/ML, 1ML ONE (14:43)
[2017-02-13] MEDS ORDERED: METOCLOPRAMIDE 5 MG/ML, 2ML ONE (14:43)
[2017-02-13] MEDS ORDERED: PROMETHAZINE 25 MG/ML, 1ML IM PRN (16:00)
[2017-02-13 16:32] LABS: PATH.CAST-FLAG NOT PRESENT; SPERM-FLAG NOT PRESENT; SRC-FLAG NOT PRESENT; XTAL-FLAG NOT PRESENT; YLC-FLAG NOT PRESENT
[2017-02-13 17:55] VITALS: BP 154/90
[2017-02-13] MEDS: NS + 20MEQ KCL 1,000 ML IV SCH (18:10)
[2017-02-13] MEDS: ENOXAPARIN 40 MG/0.4 ML SQ SCH (18:11)
[2017-02-13] MEDS: NICOTINE 14MG/24 HR PATCH.TD24 TD SCH (18:11)
[2017-02-13] MEDS: SUCRALFATE 1 GM TABLET PO SCH (18:11)
[2017-02-13] MEDS: HYDROcodone/APAP 5/325 TABLET PO PRN (18:17)
[2017-02-13 18:34] VITALS: BP 174/94
[2017-02-13] MEDS: AMLODIPINE 5 MG TABLET PO SCH (21:37)
[2017-02-13] MEDS: PANTOPROZOLE 40MG TABLET PO SCH (21:37)
[2017-02-13] MEDS: SIMVASTATIN 5 MG TABLET PO SCH (21:37)
[2017-02-13] MEDS: PAROXETINE 20 MG TABLET PO SCH (21:37)
[2017-02-14] VITALS: BP 143/76
[2017-02-14] MEDS: SUCRALFATE 1 GM TABLET PO SCH ×4 (00:14→18:43)
[2017-02-14] MEDS: HYDROcodone/APAP 5/325 TABLET PO PRN ×4 (00:14→18:48)
[2017-02-14] MEDS: ONDANSETRON 2MG/ML, 2ML IVPush PRN ×2 (00:39→11:39)
[2017-02-14 02:01] VITALS: BP 133/83
[2017-02-14] MEDS: NS + 20MEQ KCL 1,000 ML IV SCH ×4 (04:16→23:48)
[2017-02-14 05:18] LABS: BLOOD UREA NITROGEN 8 mg/dL (7-18)
[2017-02-14] MEDS ORDERED: POTASSIUM CHLORIDE 40 MEQ in SODIUM CHLORIDE 0.9% 500 ML IV ONE (07:00)
[2017-02-14 07:11] VITALS: BP 149/88
[2017-02-14] MEDS: PANTOPROZOLE 40MG TABLET PO SCH ×2 (09:24→20:53)
[2017-02-14] MEDS: LOSARTAN 50MG TABLET PO SCH (09:24)
[2017-02-14] MEDS: SENNA/DOCUSATE TABLET PO SCH (09:24)
[2017-02-14 12:07] VITALS: BP 154/86
[2017-02-14] MEDS: METOCLOPRAMIDE 5 MG/ML, 2ML IVPush PRN (13:59)
[2017-02-14] MEDS: ACETAMINOPHEN 325 MG TABLET PO PRN ×2 (17:08→20:54)
[2017-02-14] MEDS: NICOTINE 14MG/24 HR PATCH.TD24 TD SCH (18:00)
[2017-02-14] MEDS: ENOXAPARIN 40 MG/0.4 ML SQ SCH (18:43)
[2017-02-14 19:50] VITALS: BP 137/81
[2017-02-14] MEDS: AMLODIPINE 5 MG TABLET PO SCH (20:53)
[2017-02-14] MEDS: PAROXETINE 20 MG TABLET PO SCH (20:53)
[2017-02-14] MEDS: SIMVASTATIN 5 MG TABLET PO SCH (20:54)
[2017-02-14] MEDS: PRAMIPEXOLE 0.125MG TABLET PO SCH (21:00)
[2017-02-14] MEDS ORDERED: PRAMIPEXOLE 0.125MG TABLET PO SCH (21:00)
[2017-02-15] MEDS: ONDANSETRON 2MG/ML, 2ML IVPush PRN ×2 (00:48→08:40)
[2017-02-15] MEDS: PRAMIPEXOLE 0.125MG TABLET PO SCH (00:49)
[2017-02-15] MEDS: SUCRALFATE 1 GM TABLET PO SCH ×4 (00:49→13:36)
[2017-02-15] MEDS: HYDROcodone/APAP 5/325 TABLET PO PRN ×5 (00:49→15:25)
[2017-02-15 01:35] VITALS: BP 122/75
[2017-02-15] MEDS: METOCLOPRAMIDE 5 MG/ML, 2ML IVPush PRN ×2 (05:43→14:18)
[2017-02-15 07:00] VITALS: BP 145/78
[2017-02-15] MEDS: PANTOPROZOLE 40MG TABLET PO SCH (08:39)
[2017-02-15] MEDS: SENNA/DOCUSATE TABLET PO SCH (08:40)
[2017-02-15] MEDS: LOSARTAN 50MG TABLET PO SCH (08:40)
[2017-02-15 12:12] VITALS: BP 125/74
== END 2017-02-15 16:50 | disposition home or self-care (01) ==
LOC: ED 15:10 → EDIP 15:57 → 4EST 17:41
PROVIDERS: ADMIT Family Medicine; ATTEND Family Medicine
DX: R11.2 Nausea with vomiting, unspecified (principal); F11.20 Opioid dependence, uncomplicated; G25.81 Restless legs syndrome; E78.5 Hyperlipidemia, unspecified; R32 Unspecified urinary incontinence; I10 Essential (primary) hypertension; I25.10 Atherosclerotic heart disease of native coronary artery without angina pectoris; E87.6 Hypokalemia; F17.210 Nicotine dependence, cigarettes, uncomplicated; G89.29 Other chronic pain; J44.9 Chronic obstructive pulmonary disease, unspecified; K21.9 Gastro-esophageal reflux disease without esophagitis; K29.70 Gastritis, unspecified, without bleeding; K44.9 Diaphragmatic hernia without obstruction or gangrene; K59.00 Constipation, unspecified; Z81.8 Family history of other mental and behavioral disorders
CPT/HCPCS: 36415; 74022; 80048; 80053; 81001; 83690; 85025; 87086; 93005; 96361; 96365; 96366; 96372; 96375; 96376; 97162; 99285; G0378; J1200; J1650; J2405; J2550; J2765; J3480; J7030; J7040

== ENCOUNTER 2017-03-28 15:16 | Emergency (ER) | payer OTHER, MEDICAID ==
[~2017-03-28] VITALS: Ht 175.3 cm; Wt 109.0 kg
[~2017-03-28 15:16] MED LIST changes: +LOSA1TAB2 PO; +METO-394 PO; +POTA10TA11 PO
[2017-03-28] MEDS ORDERED: FAMOTIDINE 20 MG/2 ML IVP ONE (15:30)
[2017-03-28] MEDS ORDERED: ONDANSETRON 2MG/ML, 2ML IVPush ONE (15:30)
[2017-03-28] MEDS ORDERED: MORPHINE SULFATE 4 MG/ML, 1ML IVPush PRN (15:30)
[2017-03-28] MEDS ORDERED: SODIUM CHLORIDE 0.9% 1,000ML IVBOLUS ONE (15:30)
[2017-03-28] MEDS ORDERED: ONDANSETRON 2MG/ML, 2ML ONE (15:56)
[2017-03-28] MEDS ORDERED: morphine SULFATE 10 MG/ML, 1ML ONE (15:56)
[2017-03-28] MEDS ORDERED: FAMOTIDINE 20 MG/2 ML ONE (15:57)
[2017-03-28 15:58] LABS: HEMATOCRIT 42.9 % (34.6-47.8); HEMOGLOBIN 14.5 g/dL (11.7-16.4); WHITE BLOOD COUNT 8.9 x10^3/uL (3.4-10)
[2017-03-28 16:07] LABS: ASPARTATE AMINO TRANSFERASE 14 U/L (15-37); BLOOD UREA NITROGEN 14 mg/dL (7-18)
[2017-03-28 16:14] LABS: IS PT STATUS REG ER OR PRE ER? YES
[2017-03-28] MEDS ORDERED: OMNIPAQUE 350 MG/ML, 100ML BOTTLE ONE (16:52)
[2017-03-28 17:16] LABS: PATH.CAST-FLAG NOT PRESENT; SPERM-FLAG NOT PRESENT; SRC-FLAG NOT PRESENT; XTAL-FLAG NOT PRESENT; YLC-FLAG NOT PRESENT
[2017-03-28] MEDS ORDERED: MAALOX/HYOSCYAMINE/LIDOCAINE 45 ML BTL ONE (17:23)
[2017-03-28] MEDS ORDERED: PROCHLORPERAZINE 5 MG/ML, 2ML ONE (17:25)
[2017-03-28] MEDS ORDERED: MAALOX/HYOSCYAMINE/LIDOCAINE 45 ML BTL PO ONE (17:30)
[2017-03-28] MEDS ORDERED: PROCHLORPERAZINE 5 MG/ML, 2ML IVPush ONE (17:30)
[2017-03-28 18:03] VITALS: BP 137/80
== END 2017-03-28 18:05 | disposition home or self-care (01) ==
LOC: ED 16:16
DX: K29.00 Acute gastritis without bleeding (principal); N30.00 Acute cystitis without hematuria; E86.9 Volume depletion, unspecified; E87.1 Hypo-osmolality and hyponatremia; E78.5 Hyperlipidemia, unspecified; I10 Essential (primary) hypertension; K21.9 Gastro-esophageal reflux disease without esophagitis; Z90.49 Acquired absence of other specified parts of digestive tract; Z90.710 Acquired absence of both cervix and uterus
CPT/HCPCS: 36415; 74177; 80053; 81001; 83690; 84484; 85025; 87086; 93005; 96361; 96374; 96375; 99285; J0780; J2405; J7030; Q9967; S0028

== ENCOUNTER 2017-04-01 14:17 | Emergency (ER) | payer OTHER, MEDICAID ==
[~2017-04-01] VITALS: Ht 177.8 cm; Wt 109.0 kg
[2017-04-01 15:16] LABS: HEMOGLOBIN 14.4 g/dL (11.7-16.4); WHITE BLOOD COUNT 7.5 x10^3/uL (3.4-10)
[2017-04-01] MEDS ORDERED: PROCHLORPERAZINE 5 MG/ML, 2ML ONE (15:27)
[2017-04-01] MEDS ORDERED: MAALOX/HYOSCYAMINE/LIDOCAINE 45 ML BTL ONE (15:27)
[2017-04-01 15:28] LABS: ASPARTATE AMINO TRANSFERASE 16 U/L (15-37); BLOOD UREA NITROGEN 10 mg/dL (7-18)
[2017-04-01] MEDS ORDERED: FAMOTIDINE 20 MG/2 ML ONE (15:28)
[2017-04-01] MEDS ORDERED: SODIUM CHLORIDE FLUSH 10ML SYR IVF ONE (15:30)
[2017-04-01] MEDS ORDERED: PROCHLORPERAZINE 5 MG/ML, 2ML IV ONE (15:30)
[2017-04-01] MEDS ORDERED: MAALOX/HYOSCYAMINE/LIDOCAINE 45 ML BTL PO ONE (15:30)
[2017-04-01] MEDS ORDERED: FAMOTIDINE 20 MG/2 ML IVP ONE (15:30)
[2017-04-01] MEDS ORDERED: SODIUM CHLORIDE 0.9% 1,000ML IVBOLUS ONE (15:30)
[2017-04-01 18:50] VITALS: BP 117/59
== END 2017-04-01 18:53 | disposition home or self-care (01) ==
LOC: ED 14:53
DX: R10.84 Generalized abdominal pain (principal); R11.2 Nausea with vomiting, unspecified; K21.9 Gastro-esophageal reflux disease without esophagitis; M19.90 Unspecified osteoarthritis, unspecified site; I10 Essential (primary) hypertension; I25.10 Atherosclerotic heart disease of native coronary artery without angina pectoris
CPT/HCPCS: 36415; 74020; 80053; 83690; 85025; 96361; 96374; 96375; 99285; J0780; J7030; S0028

== ENCOUNTER 2017-04-24 17:28 | Emergency (ER) | payer OTHER, MEDICAID ==
[~2017-04-24] VITALS: Ht 185.4 cm; Wt 104.2 kg
[2017-04-24] MEDS ORDERED: METOCLOPRAMIDE 5 MG/ML, 2ML IVPush ONE (18:00)
[2017-04-24] MEDS ORDERED: SODIUM CHLORIDE FLUSH 10ML SYR IVF ONE (18:00)
[2017-04-24] MEDS ORDERED: FAMOTIDINE 20 MG/2 ML IVPush ONE (18:00)
[2017-04-24] MEDS ORDERED: SODIUM CHLORIDE 0.9% 1,000ML IVBOLUS ONE (18:00)
[2017-04-24] MEDS ORDERED: METOCLOPRAMIDE 5 MG/ML, 2ML ONE (18:01)
[2017-04-24] MEDS ORDERED: FAMOTIDINE 20 MG/2 ML ONE (18:02)
[2017-04-24 18:07] LABS: HEMATOCRIT 45.9 % (34.6-47.8); HEMOGLOBIN 15.3 g/dL (11.7-16.4); WHITE BLOOD COUNT 5.8 x10^3/uL (3.4-10)
[2017-04-24] MEDS ORDERED: HYDR-3240 PO (18:15)
[2017-04-24] MEDS ORDERED: AMLO5TAB2 PO (18:16)
[2017-04-24 18:19] LABS: BLOOD UREA NITROGEN 13 mg/dL (7-18)
[2017-04-24 18:23] LABS: ASPARTATE AMINO TRANSFERASE 13 U/L (15-37)
[2017-04-24 20:23] VITALS: BP 120/73
== END 2017-04-24 20:26 | disposition home or self-care (01) ==
LOC: ED 18:42
DX: K22.5 Diverticulum of esophagus, acquired (principal); K21.9 Gastro-esophageal reflux disease without esophagitis; E78.5 Hyperlipidemia, unspecified; I10 Essential (primary) hypertension; F32.9 Major depressive disorder, single episode, unspecified; F17.210 Nicotine dependence, cigarettes, uncomplicated; Z90.49 Acquired absence of other specified parts of digestive tract; Z90.710 Acquired absence of both cervix and uterus
CPT/HCPCS: 36415; 74020; 74241; 80053; 83690; 85025; 96361; 96374; 96375; 99285; J2765; J7030; S0028

== ENCOUNTER 2017-04-25 15:31 | Emergency (ER) | payer OTHER, MEDICAID ==
[~2017-04-25] VITALS: Ht 177.8 cm; Wt 105.0 kg
[~2017-04-25 15:31] MED LIST changes: +HYDR-3240 PO
[2017-04-25 16:13] LABS: HEMATOCRIT 41.2 % (34.6-47.8); WHITE BLOOD COUNT 6.9 x10^3/uL (3.4-10)
[2017-04-25] MEDS ORDERED: PROMETHAZINE 25 MG/ML, 1ML ONE (16:20)
[2017-04-25 16:23] LABS: ASPARTATE AMINO TRANSFERASE 17 U/L (15-37); BLOOD UREA NITROGEN 9 mg/dL (7-18)
[2017-04-25] MEDS ORDERED: PROMETHAZINE 25 MG/ML, 1ML IM ONE (16:30)
[2017-04-25 18:19] VITALS: BP 139/84
== END 2017-04-25 18:22 | disposition home or self-care (01) ==
LOC: ED 16:12
DX: R11.2 Nausea with vomiting, unspecified (principal); E78.5 Hyperlipidemia, unspecified; F32.9 Major depressive disorder, single episode, unspecified; I10 Essential (primary) hypertension; I25.10 Atherosclerotic heart disease of native coronary artery without angina pectoris; M19.90 Unspecified osteoarthritis, unspecified site; K21.9 Gastro-esophageal reflux disease without esophagitis; Z90.49 Acquired absence of other specified parts of digestive tract; Z90.710 Acquired absence of both cervix and uterus; Z88.8 Allergy status to other drugs, medicaments and biological substances
CPT/HCPCS: 36415; 80053; 81001; 83690; 83735; 85025; 87086; 96372; 99284; J2550

== ENCOUNTER 2017-04-28 11:42 | Emergency (ER) | payer OTHER, MEDICAID ==
[~2017-04-28] VITALS: Ht 177.8 cm; Wt 109.1 kg
[2017-04-28] MEDS ORDERED: SODIUM CHLORIDE 0.9% 1,000 ML IV ONE (12:10)
[2017-04-28] MEDS ORDERED: MAALOX/HYOSCYAMINE/LIDOCAINE 45 ML BTL ONE (12:18)
[2017-04-28] MEDS ORDERED: METOCLOPRAMIDE 5 MG/ML, 2ML ONE (12:18)
[2017-04-28] MEDS ORDERED: FAMOTIDINE 20 MG/2 ML ONE (12:18)
[2017-04-28] MEDS ORDERED: FAMOTIDINE 20 MG/2 ML IVP ONE (12:30)
[2017-04-28] MEDS ORDERED: MAALOX/HYOSCYAMINE/LIDOCAINE 45 ML BTL PO ONE (12:30)
[2017-04-28] MEDS ORDERED: METOCLOPRAMIDE 5 MG/ML, 2ML IVPush ONE (12:30)
[2017-04-28] MEDS ORDERED: SODIUM CHLORIDE FLUSH 10ML SYR IVF ONE (12:30)
[2017-04-28 12:39] LABS: HEMATOCRIT 43.9 % (34.6-47.8); HEMOGLOBIN 14.7 g/dL (11.7-16.4); WHITE BLOOD COUNT 7.9 x10^3/uL (3.4-10)
[2017-04-28 12:50] LABS: BLOOD UREA NITROGEN 15 mg/dL (7-18)
[2017-04-28 12:54] LABS: ASPARTATE AMINO TRANSFERASE 19 U/L (15-37)
[2017-04-28] MEDS ORDERED: morphine SULFATE 10 MG/ML, 1ML IVPush ONE (13:00)
[2017-04-28] MEDS ORDERED: DIPHENHYDRAMINE 50 MG/ML, 1ML IVPush ONE (13:00)
[2017-04-28] MEDS ORDERED: PROCHLORPERAZINE 5 MG/ML, 2ML IVPush ONE (13:00)
[2017-04-28] MEDS ORDERED: DIPHENHYDRAMINE 50 MG/ML, 1ML ONE (13:01)
[2017-04-28] MEDS ORDERED: PROCHLORPERAZINE 5 MG/ML, 2ML ONE (13:01)
[2017-04-28] MEDS ORDERED: morphine SULFATE 10 MG/ML, 1ML ONE (13:01)
[2017-04-28 13:33] VITALS: BP 108/79
== END 2017-04-28 14:08 | disposition home or self-care (01) ==
LOC: ED 11:56
DX: K31.84 Gastroparesis (principal); K21.9 Gastro-esophageal reflux disease without esophagitis; E78.5 Hyperlipidemia, unspecified; M19.90 Unspecified osteoarthritis, unspecified site; I10 Essential (primary) hypertension; I25.10 Atherosclerotic heart disease of native coronary artery without angina pectoris; Z90.49 Acquired absence of other specified parts of digestive tract; Z90.710 Acquired absence of both cervix and uterus
CPT/HCPCS: 36415; 74020; 80053; 81001; 83690; 85025; 87086; 96361; 96374; 96375; 99285; J0780; J1200; J2270; J2765; J7030; S0028

== ENCOUNTER 2017-05-01 15:22 | Emergency (ER) | payer OTHER, MEDICAID ==
[~2017-05-01] VITALS: Ht 177.8 cm; Wt 104.0 kg
[2017-05-01 15:29] VITALS: BP 130/87
[2017-05-01 16:01] LABS: HEMATOCRIT 43.8 % (34.6-47.8); HEMOGLOBIN 14.9 g/dL (11.7-16.4)
[2017-05-01 16:08] LABS: ASPARTATE AMINO TRANSFERASE 49 U/L (15-37); BLOOD UREA NITROGEN 8 mg/dL (7-18)
[2017-05-01 16:16] LABS: RAPID INFLUENZA A Negative (Negative); RAPID INFLUENZA B Negative (Negative)
[2017-05-01] MEDS ORDERED: ONDANSETRON ODT 4 MG PO ONE (16:30)
[2017-05-01] MEDS ORDERED: ONDANSETRON ODT 4 MG ONE ×2 (16:39→16:43)
== END 2017-05-01 16:58 | disposition home or self-care (01) ==
LOC: ED 16:52
DX: R11.2 Nausea with vomiting, unspecified (principal); I10 Essential (primary) hypertension; I25.10 Atherosclerotic heart disease of native coronary artery without angina pectoris; Z90.49 Acquired absence of other specified parts of digestive tract; Z90.710 Acquired absence of both cervix and uterus; Z88.8 Allergy status to other drugs, medicaments and biological substances
CPT/HCPCS: 36415; 71020; 80053; 85025; 87400; 99285; Q0162

== ENCOUNTER 2017-05-09 15:58 | Emergency (ER) | payer OTHER, MEDICAID ==
[~2017-05-09] VITALS: Ht 177.8 cm; Wt 105.0 kg
[2017-05-09] MEDS ORDERED: FAMOTIDINE 20 MG/2 ML IVP ONE (16:30)
[2017-05-09] MEDS ORDERED: ONDANSETRON 2MG/ML, 2ML IVPush ONE (16:30)
[2017-05-09] MEDS ORDERED: SODIUM CHLORIDE 0.9% 1,000ML IVBOLUS ONE (16:30)
[2017-05-09] MEDS ORDERED: SODIUM CHLORIDE FLUSH 10ML SYR IVF ONE (16:30)
[2017-05-09] MEDS ORDERED: METOCLOPRAMIDE 5 MG/ML, 2ML IVPush ONE (16:30)
[2017-05-09] MEDS ORDERED: METOCLOPRAMIDE 5 MG/ML, 2ML ONE (17:32)
[2017-05-09] MEDS ORDERED: ONDANSETRON 2MG/ML, 2ML ONE (17:32)
[2017-05-09] MEDS ORDERED: FAMOTIDINE 20 MG/2 ML ONE (17:33)
[2017-05-09] MEDS ORDERED: HALOPERIDOL 5 MG/ML ONE (17:44)
[2017-05-09] MEDS ORDERED: DIPHENHYDRAMINE 50 MG/ML, 1ML ONE (17:44)
[2017-05-09] MEDS ORDERED: ALBUTEROL/IPRATROPIUM 2.5MG/0.5MG, 3 ML ONE (17:55)
[2017-05-09] MEDS ORDERED: ALBUTEROL/IPRATROPIUM 2.5MG/0.5MG, 3 ML NPPB ONE (18:00)
[2017-05-09] MEDS ORDERED: HALOPERIDOL 5 MG/ML IV ONE (18:00)
[2017-05-09] MEDS ORDERED: DIPHENHYDRAMINE 50 MG/ML, 1ML IVPush ONE (18:00)
[2017-05-09 18:59] VITALS: BP 95/62
== END 2017-05-09 19:21 | disposition home or self-care (01) ==
LOC: ED 18:45
DX: J44.1 Chronic obstructive pulmonary disease with (acute) exacerbation (principal); R11.2 Nausea with vomiting, unspecified; I10 Essential (primary) hypertension
CPT/HCPCS: 71010; 94640; 96374; 96375; 99284; J1200; J1630; J7620

== ENCOUNTER 2017-05-12 12:30 | Emergency (ER) | payer OTHER, MEDICAID ==
[~2017-05-12] VITALS: Ht 180.3 cm; Wt 104.5 kg
[2017-05-12 12:45] VITALS: BP 123/77
[2017-05-12 13:34] LABS: HEMATOCRIT 42.6 % (34.6-47.8); HEMOGLOBIN 14.2 g/dL (11.7-16.4); WHITE BLOOD COUNT 6.4 x10^3/uL (3.4-10)
[2017-05-12 13:47] LABS: ASPARTATE AMINO TRANSFERASE 18 U/L (15-37); BLOOD UREA NITROGEN 15 mg/dL (7-18)
[2017-05-12] MEDS ORDERED: HALOPERIDOL 5 MG/ML IM ONE (15:30)
[2017-05-12] MEDS ORDERED: ONDANSETRON ODT 4 MG PO ONE (15:30)
[2017-05-12 16:43] LABS: RAPID INFLUENZA A Negative (Negative); RAPID INFLUENZA B Negative (Negative)
== END 2017-05-12 16:35 | disposition home or self-care (01) ==
LOC: ED 14:59
DX: R11.2 Nausea with vomiting, unspecified (principal); R10.9 Unspecified abdominal pain; E11.9 Type 2 diabetes mellitus without complications; E78.5 Hyperlipidemia, unspecified; F17.210 Nicotine dependence, cigarettes, uncomplicated; F32.9 Major depressive disorder, single episode, unspecified; I10 Essential (primary) hypertension; I25.10 Atherosclerotic heart disease of native coronary artery without angina pectoris; J44.9 Chronic obstructive pulmonary disease, unspecified; K21.9 Gastro-esophageal reflux disease without esophagitis; M19.90 Unspecified osteoarthritis, unspecified site; Z90.49 Acquired absence of other specified parts of digestive tract
CPT/HCPCS: 36415; 80053; 81001; 83690; 85025; 87086; 87400; 96372; 99284; J1630; Q0162

== ENCOUNTER 2017-11-23 17:04 | Inpatient (IN) | payer OTHER, MEDICAID ==
[~2017-11-23] VITALS: Ht 177.8 cm; Wt 30.6 kg
[~2017-11-23 17:04] MED LIST changes: -METO-394 PO; +METO-429 PO
[2017-11-23] MEDS ORDERED: DILTIAZEM 5 MG/ML, 5ML ONE (17:37)
[2017-11-23] MEDS ORDERED: DILTIAZEM 60 MG TABLET ONE (17:37)
[2017-11-23 17:42] LABS: BASOPHILS # (AUTO) 0.02 x10^3/uL (0-0.1); BASOPHILS % (AUTO) 0 % (0-1); EOSINOPHILS # (AUTO) 0.19 x10^3/uL (0-0.4); EOSINOPHILS % (AUTO) 3 % (1-7); LYMPHOCYTES # (AUTO) 1.13 x10^3/uL (1-3.4); LYMPHOCYTES % (AUTO) 18 % (22-44); MD NO; MEAN CORPUSCULAR HEMOGLOBIN 32.3 pg (27.0-34.8); MEAN CORPUSCULAR HGB CONC 33.8 g/dL (32.4-35.8); MEAN CORPUSCULAR VOLUME 95.4 fL (80-100); MEAN PLATELET VOLUME 8.3 fL (7.4-10.4); MONOCYTES # (AUTO) 0.39 x10^3/uL (0.2-0.8); MONOCYTES % (AUTO) 6 % (2-9); NEUTROPHILS # (AUTO) 4.46 x10^3/uL (1.8-6.8); NEUTROPHILS % (AUTO) 72 % (42-75); PLATELET COUNT 293 x10^3/uL (130-400); RED BLOOD COUNT 4.75 x10^6/uL (3.82-5.3); RED CELL DISTRIBUTION WIDTH 15.6 % (9.6-15.2)
[2017-11-23 17:51] LABS: ALBUMIN 3.5 g/dL (3.4-5.0); ANION GAP 9 mmol/L (5-15); CALCIUM 9.4 mg/dL (8.5-10.1); CHLORIDE 111 mmol/L (98-107)
[2017-11-23 17:58] LABS: ALANINE AMINOTRANSFERASE 16 U/L (12-78); ALKALINE PHOSPHATASE 94 U/L (45-117); BILIRUBIN,TOTAL 0.4 mg/dL (0.2-1.0); CREATININE 0.94 mg/dL (0.55-1.02); TOTAL PROTEIN 7.8 g/dL (6.4-8.2); TROPONIN I < 0.015 ng/mL (0.000-0.045)
[2017-11-23] MEDS ORDERED: DILTIAZEM 5 MG/ML, 5ML IVPush ONE ×2 (18:00→18:30)
[2017-11-23] MEDS ORDERED: DILTIAZEM 60 MG TABLET PO ONE (18:00)
[2017-11-23] MEDS ORDERED: APIXABAN 5 MG TABLET PO ONE (19:00)
[2017-11-23] MEDS ORDERED: ONDANSETRON ODT 4 MG PO PRN (20:00)
[2017-11-23] MEDS ORDERED: ENALAPRILAT 1.25 MG/ML, 2ML IVPush PRN (20:00)
[2017-11-23] MEDS ORDERED: ENOXAPARIN 40 MG/0.4 ML SQ SCH (20:00)
[2017-11-23] MEDS ORDERED: ACETAMINOPHEN 325 MG TABLET PO PRN (20:00)
[2017-11-23] MEDS ORDERED: ONDANSETRON 2MG/ML, 2ML IVPush PRN (20:00)
[2017-11-23] MEDS ORDERED: TRAZODONE 50MG TABLET PO PRN (20:00)
[2017-11-23] MEDS ORDERED: DOCUSATE 100 MG CAPSULE PO PRN (20:00)
[2017-11-23] MEDS ORDERED: hydrALAzine 20 MG/ML, 1ML IVPush PRN (20:00)
[2017-11-23] MEDS ORDERED: BISACODYL 10 MG SUPP PR PRN (20:00)
[2017-11-23 20:05] VITALS: BP 118/74
[2017-11-23 20:36] LABS: TROPONIN I < 0.015 ng/mL (0.000-0.045)
[2017-11-23] MEDS ORDERED: APIXABAN 5 MG TABLET PO SCH (21:00)
[2017-11-23] MEDS: PANTOPRAZOLE 20MG TABLET PO SCH (21:47)
[2017-11-23] MEDS: PAROXETINE 20 MG TABLET PO SCH (21:47)
[2017-11-23] MEDS: LOVASTATIN 10 MG TABLET PO SCH (21:47)
[2017-11-23] MEDS: METOPROLOL TARTRATE 25 MG TABLET PO SCH (21:48)
[2017-11-23 22:54] VITALS: BP 102/70
[2017-11-23 23:22] LABS: CULTURE INDICATED? YES; MICROSCOPIC INDICATED
[2017-11-23] MEDS ORDERED: DILTIAZEM 125 MG in SODIUM CHLORIDE 0.9% 100 ML IV SCH (23:30)
[2017-11-24] VITALS (7 sets, daily range): BP systolic 106–135; BP diastolic 69–87
[2017-11-24 00:27] LABS: CLOSTRIDIUM DIFFICILE ANTIGEN NEGATIVE; CLOSTRIDIUM DIFFICILE TOXIN NEGATIVE (Negative)
[2017-11-24 01:39] LABS: BASOPHILS # (AUTO) 0.03 x10^3/uL (0-0.1); BASOPHILS % (AUTO) 0 % (0-1); EOSINOPHILS # (AUTO) 0.16 x10^3/uL (0-0.4); EOSINOPHILS % (AUTO) 2 % (1-7); LYMPHOCYTES % (AUTO) 14 % (22-44); MD NO; MEAN CORPUSCULAR HEMOGLOBIN 31.7 pg (27.0-34.8); MEAN CORPUSCULAR VOLUME 96.1 fL (80-100); MEAN PLATELET VOLUME 8.1 fL (7.4-10.4); MONOCYTES # (AUTO) 0.56 x10^3/uL (0.2-0.8); MONOCYTES % (AUTO) 7 % (2-9); NEUTROPHILS # (AUTO) 6.09 x10^3/uL (1.8-6.8); NEUTROPHILS % (AUTO) 77 % (42-75); PLATELET COUNT 254 x10^3/uL (130-400); RED BLOOD COUNT 4.14 x10^6/uL (3.82-5.3); RED CELL DISTRIBUTION WIDTH 15.5 % (9.6-15.2)
[2017-11-24 01:50] LABS: ANION GAP 5 mmol/L (5-15); CALCIUM 8.8 mg/dL (8.5-10.1); CHLORIDE 113 mmol/L (98-107); CHOLESTEROL, TOTAL 136 mg/dL (140-239); CREATININE 0.91 mg/dL (0.55-1.02); TRIGLYCERIDES 145 mg/dL (50-200); VLDL CHOLESTEROL 29 mg/dL (0-25)
[2017-11-24 01:51] LABS: TROPONIN I < 0.015 ng/mL (0.000-0.045)
[2017-11-24 01:52] LABS: CHOL/HDL RATIO 3.8; HDL CHOL % 26 % (28-40); HDL CHOLESTEROL (DIRECT) 36 mg/dL (40-60); LDL CHOLESTEROL,CALCULATED 71 mg/dL (54-169)
[2017-11-24] MEDS: HYDROcodone/APAP 5/325 TABLET PO PRN ×4 (03:11→21:41)
[2017-11-24] MEDS: APIXABAN 5 MG TABLET PO SCH ×3 (04:44→20:24)
[2017-11-24] MEDS: METOPROLOL TARTRATE 25 MG TABLET PO SCH ×2 (04:47→17:52)
[2017-11-24] MEDS ORDERED: METOPROLOL 1 MG/ML, 5ML IVPush PRN (07:30)
[2017-11-24] MEDS: PANTOPRAZOLE 20MG TABLET PO SCH ×2 (08:44→20:24)
[2017-11-24] MEDS ORDERED: DILTIAZEM 120 MG CAP.ER.12H PO SCH (09:00)
[2017-11-24] MEDS ORDERED: POTASSIUM CHLORIDE 20 MEQ TAB.ER.PRT PO ONE (09:30)
[2017-11-24] MEDS: PAROXETINE 20 MG TABLET PO SCH (20:24)
[2017-11-24] MEDS: LOVASTATIN 10 MG TABLET PO SCH (20:24)
[2017-11-25 00:54] VITALS: BP 109/76
[2017-11-25 05:01] LABS: ANION GAP 5 mmol/L (5-15); CALCIUM 8.7 mg/dL (8.5-10.1); CHLORIDE 112 mmol/L (98-107); CREATININE 0.72 mg/dL (0.55-1.02)
[2017-11-25 06:10] VITALS: BP 115/83
[2017-11-25] MEDS: METOPROLOL TARTRATE 25 MG TABLET PO SCH ×2 (06:11→16:01)
[2017-11-25 07:16] VITALS: BP 104/71
[2017-11-25] MEDS: APIXABAN 5 MG TABLET PO SCH ×2 (07:32→20:34)
[2017-11-25] MEDS: PANTOPRAZOLE 20MG TABLET PO SCH ×2 (07:32→20:34)
[2017-11-25] MEDS: LOSARTAN 25MG TABLET PO SCH (09:58)
[2017-11-25] MEDS ORDERED: LISINOPRIL 5 MG TABLET PO SCH (10:00)
[2017-11-25] MEDS: HYDROcodone/APAP 5/325 TABLET PO PRN ×2 (14:42→21:54)
[2017-11-25 14:43] VITALS: BP 104/69
[2017-11-25 19:26] VITALS: BP_SYST 104; BP_SYST 91; BP_DIAS 57; BP_DIAS 72
[2017-11-25] MEDS: PAROXETINE 20 MG TABLET PO SCH (20:34)
[2017-11-25] MEDS: LOVASTATIN 10 MG TABLET PO SCH (20:34)
[2017-11-25 21:53] VITALS: BP 107/73
[2017-11-26 00:38] VITALS: BP 127/90
[2017-11-26] MEDS: HYDROcodone/APAP 5/325 TABLET PO PRN ×4 (00:47→16:48)
[2017-11-26 05:16] VITALS: BP 114/73
[2017-11-26] MEDS: METOPROLOL TARTRATE 25 MG TABLET PO SCH (05:19)
[2017-11-26 07:50] VITALS: BP 128/82
[2017-11-26] MEDS ORDERED: REGADENOSON 0.4 MG/5 ML SYRINGE ONE (08:25)
[2017-11-26] MEDS: APIXABAN 5 MG TABLET PO SCH (09:48)
[2017-11-26] MEDS: PANTOPRAZOLE 20MG TABLET PO SCH (09:48)
[2017-11-26] MEDS: LOSARTAN 25MG TABLET PO SCH (09:49)
[2017-11-26] MEDS ORDERED: METOPROLOL SUCCINATE 50 MG TAB.ER.24H PO SCH (12:30)
[2017-11-26 13:25] VITALS: BP 105/75
[2017-11-26] MEDS ORDERED: METO-93 PO (14:00)
[2017-11-26] MEDS ORDERED: APIX5TAB PO (14:00)
== END 2017-11-26 17:38 | disposition home or self-care (01) | DRG 308 ==
LOC: EDIP 17:44 → ED 18:25 → 5SO 19:48
PROVIDERS: ADMIT Family Medicine; ATTEND Family Medicine
DX: I48.0 Paroxysmal atrial fibrillation (principal); I50.43 Acute on chronic combined systolic (congestive) and diastolic (congestive) heart failure; Q21.0 Ventricular septal defect; D68.69 Other thrombophilia; Q21.1 Atrial septal defect; I42.9 Cardiomyopathy, unspecified; E78.5 Hyperlipidemia, unspecified; F17.200 Nicotine dependence, unspecified, uncomplicated; I08.1 Rheumatic disorders of both mitral and tricuspid valves; I11.0 Hypertensive heart disease with heart failure; F32.9 Major depressive disorder, single episode, unspecified; I27.20 Pulmonary hypertension, unspecified; I48.2 Chronic atrial fibrillation; J44.9 Chronic obstructive pulmonary disease, unspecified; M19.90 Unspecified osteoarthritis, unspecified site; E11.43 Type 2 diabetes mellitus with diabetic autonomic (poly)neuropathy; K31.84 Gastroparesis; G89.29 Other chronic pain; I25.10 Atherosclerotic heart disease of native coronary artery without angina pectoris; I25.2 Old myocardial infarction; Z81.8 Family history of other mental and behavioral disorders; Z90.49 Acquired absence of other specified parts of digestive tract; Z90.710 Acquired absence of both cervix and uterus; Z88.6 Allergy status to analgesic agent
CPT/HCPCS: 36415; 71045; 78452; 80048; 80053; 80061; 81001; 83735; 83880; 84100; 84443; 84484; 85025; 87086; 87324; 93005; 93017; 93306; 96374; 96376; J2405; J2785; A9502; C9898

== ENCOUNTER 2019-10-05 15:27 | Emergency (ER) | payer MEDICARE, MEDICAID ==
[~2019-10-05] VITALS: Ht 180.3 cm; Wt 107.0 kg
[~2019-10-05 15:27] MED LIST changes: +AMLO-150 PO; -AMLO5TAB2 PO; +APIX5TAB PO; -GABA600T2 PO; +GABA600T7 PO; -HYDR-3307; -HYDR-3307 PO; +HYDR-36; +HYDR-36 PO; +LOSA1TAB22 PO; +MECL-101 PO; -MECL25TA4 PO; +METO-93 PO; +METO25TA91 PO; -OMEP20CA14 PO; +OMEP20CA20 PO; +SIMV5TAB14 PO; -SIMV5TAB5 PO; +[UNRECOGNIZED DRUG - OTHER] PO
[2019-10-05 15:31] VITALS: BP 119/94
--- NOTE | 2019-10-05 16:13 | NUR ---
TO ROOM FROM LOBBY AT THIS TIME.
--- NOTE | 2019-10-05 16:17 | NUR ---
RADIOLOGY AT BEDSIDE
--- NOTE | 2019-10-05 17:09 | NUR ---
WITH DISCHARGE PATIENT NOW COMPLAINING OF NAUSEA/EPIGASTRIC PAIN. SYMPTOMS APPEAR TO BE FORCED PER PHOTOCOPYING EQUIPMENT REPAIRER, PROVIDER MADE AWARE. PROVIDER AGREES THAT PATIENT SAFE FOR DISCHARGE WITHOUT FURTHER WORKUP PATIENT ESCORTED HOME BY SON REPORTS "WE MIGHT SEE YOU LATER TONIGHT."
== END 2019-10-05 17:12 | disposition home or self-care (01) ==
LOC: ED 16:23
DX: L72.3 Sebaceous cyst (principal); R07.89 Other chest pain; I10 Essential (primary) hypertension
CPT/HCPCS: 71045; 99283

== ENCOUNTER 2020-12-08 17:25 | Inpatient (IN) | payer OTHER, MEDICAID ==
[~2020-12-08] VITALS: Ht 177.8 cm; Wt 84.0 kg
[~2020-12-08 17:25] MED LIST changes: +ASPI-1026 PO; -ASPI-650 PO; +HYDR-2214 PO; -HYDR-3240 PO; +HYDR-3248; +HYDR-3248 PO; -HYDR-36; -HYDR-36 PO; -NABU750T PO; +NABU750T11 PO; -PANT40TA5 PO; +PANT40TA6 PO
[2020-12-08 18:27] LABS: BASOPHILS % (AUTO) 1 % (0-1); EOSINOPHILS % (AUTO) 3 % (1-7); LYMPHOCYTES % (AUTO) 17 % (22-44); MEAN CORPUSCULAR HEMOGLOBIN 33.5 pg (27.0-34.8); MEAN CORPUSCULAR HGB CONC 33.7 g/dL (32.4-35.8); MONOCYTES % (AUTO) 9 % (2-9); NEUTROPHILS % (AUTO) 71 % (42-75); PLATELET COUNT 200 x10^3/uL (130-400); RED BLOOD COUNT 4.35 x10^6/uL (3.82-5.3)
[2020-12-08] MEDS ORDERED: DILTIAZEM 5 MG/ML, 5ML IV ONE (18:30)
[2020-12-08] MEDS ORDERED: SODIUM CHLORIDE FLUSH 10ML SYR IVF ONE (18:30)
[2020-12-08] MEDS ORDERED: SODIUM CHLORIDE 0.9% 1,000 ML IV ONE (18:30)
[2020-12-08] MEDS: SODIUM CHLORIDE 0.9% 1,000ML IVBOLUS ONE (18:30)
[2020-12-08 18:37] LABS: ALANINE AMINOTRANSFERASE 18 U/L (12-78); ALBUMIN 3.7 g/dL (3.4-5.0); ANION GAP 7 mmol/L (5-15); CHLORIDE 110 mmol/L (98-107); CREATININE 0.88 mg/dL (0.55-1.02)
[2020-12-08 18:41] LABS: ALKALINE PHOSPHATASE 103 U/L (45-117); BILIRUBIN,TOTAL 0.5 mg/dL (0.2-1.0); TOTAL PROTEIN 7.4 g/dL (6.4-8.2); TROPONIN I < 0.015 ng/mL (0.000-0.045)
[2020-12-08 18:43] LABS: INTERNATIONAL NORMALIZED RATIO 1.05 (0.93-1.1); PROTHROMBIN TIME 11.2 Seconds (9.6-11.5)
[2020-12-08 18:50] LABS: T4 (THYROXINE) 8.4 mcg/dL (4.8-13.9)
[2020-12-08] MEDS ORDERED: FUROSEMIDE 20 MG/2 ML IV ONE (19:00)
--- NOTE | 2020-12-08 19:03 | NUR ---
ASSISTED PT UP TO BSC TO VOID BUT UNABLE TO COLLECT CLEAN CATCH SPECIMEN; ERP AWARE, NOT NEEDED AT THIS TIME. ERP WAS IN FOR RECHECK. PT UNDERSTANDS PLAN FOR ADMISSION.
[2020-12-08] MEDS ORDERED: FUROSEMIDE 20 MG/2 ML ONE (19:09)
[2020-12-08] MEDS ORDERED: DILTIAZEM 5 MG/ML, 5ML ONE (19:09)
[2020-12-08] MEDS: DILTIAZEM 125 MG in SODIUM CHLORIDE 0.9% 100 ML IV SCH (19:15)
--- NOTE | 2020-12-08 19:54 | NUR ---
ASSISTED PT UP TO BSC AGAIN, PT VOIDED, URINE SENT TO LAB. PER ERP, NOT NECESSARY FOR PT TO RECEIVE ANY IV BOLUS OR IVF.
[2020-12-08 20:08] LABS: MICROSCOPIC NOT IND
[2020-12-08 20:17] VITALS: BP 131/84
[2020-12-08 21:00] VITALS: BP 131/84
[2020-12-08] MEDS ORDERED: LABETALOL 5MG/ML, 20ML IVPush PRN (22:00)
[2020-12-08] MEDS ORDERED: DOCUSATE 100 MG CAPSULE PO PRN (22:00)
[2020-12-08] MEDS ORDERED: MELATONIN 5 MG TABLET PO PRN (22:00)
[2020-12-08] MEDS ORDERED: ONDANSETRON 2MG/ML, 2ML IVPush PRN (22:00)
[2020-12-08] MEDS ORDERED: GUAIFENESIN/DM 200-20MG, 10ML UDC PO PRN (22:00)
[2020-12-08 22:32] LABS: TROPONIN I < 0.015 ng/mL (0.000-0.045)
[2020-12-08] MEDS: LOVASTATIN 20 MG TABLET PO SCH (22:42)
[2020-12-08] MEDS: APIXABAN 5 MG TABLET PO SCH (22:42)
[2020-12-08] MEDS: PAROXETINE 20 MG TABLET PO SCH (22:42)
[2020-12-08] MEDS: ACETAMINOPHEN 325 MG TABLET PO PRN (23:41)
[2020-12-09 00:52] VITALS: BP 125/77
[2020-12-09] MEDS ORDERED: OXYcodone IR 5MG TABLET PO ONE (03:30)
[2020-12-09 04:00] LABS: BASOPHILS % (AUTO) 1 % (0-1); EOSINOPHILS % (AUTO) 3 % (1-7); LYMPHOCYTES % (AUTO) 12 % (22-44); MEAN CORPUSCULAR HEMOGLOBIN 33.3 pg (27.0-34.8); MEAN CORPUSCULAR HGB CONC 33.6 g/dL (32.4-35.8); MEAN PLATELET VOLUME 7.9 fL (7.4-10.4); MONOCYTES % (AUTO) 9 % (2-9); NEUTROPHILS % (AUTO) 76 % (42-75); PLATELET COUNT 194 x10^3/uL (130-400); RED BLOOD COUNT 4.53 x10^6/uL (3.82-5.3); RED CELL DISTRIBUTION WIDTH 13.9 % (9.6-15.2)
[2020-12-09 04:13] LABS: ANION GAP 3 mmol/L (5-15); CALCIUM 9.1 mg/dL (8.5-10.1); CHLORIDE 109 mmol/L (98-107); CREATININE 0.79 mg/dL (0.55-1.02)
[2020-12-09 04:16] LABS: TROPONIN I < 0.015 ng/mL (0.000-0.045)
[2020-12-09 06:32] VITALS: BP 105/67
[2020-12-09] MEDS: DILTIAZEM 125 MG in SODIUM CHLORIDE 0.9% 100 ML IV SCH (07:32)
[2020-12-09] MEDS: METOPROLOL SUCCINATE 25 MG TAB.ER.24H PO SCH (09:20)
[2020-12-09] MEDS: ACETAMINOPHEN 325 MG TABLET PO PRN ×3 (09:20→20:35)
[2020-12-09] MEDS: APIXABAN 5 MG TABLET PO SCH ×2 (09:20→20:35)
[2020-12-09 12:46] VITALS: BP 141/91
[2020-12-09 18:32] VITALS: BP 120/76
[2020-12-09] MEDS: PAROXETINE 20 MG TABLET PO SCH (20:35)
[2020-12-09] MEDS: LOVASTATIN 20 MG TABLET PO SCH (20:35)
[2020-12-10] VITALS (7 sets, daily range): BP systolic 138–172; BP diastolic 87–118
[2020-12-10] MEDS ORDERED: OXYcodone IR 5MG TABLET PO PRN (02:00)
[2020-12-10] MEDS: ACETAMINOPHEN 325 MG TABLET PO PRN ×2 (03:00→22:22)
[2020-12-10] MEDS: METOPROLOL SUCCINATE 25 MG TAB.ER.24H PO SCH (08:58)
[2020-12-10] MEDS: APIXABAN 5 MG TABLET PO SCH ×2 (08:58→20:22)
[2020-12-10] MEDS: DILTIAZEM 5 MG/ML, 5ML IVPush PRN ×2 (15:10→18:18)
[2020-12-10] MEDS ORDERED: METOPROLOL SUCCINATE 25 MG TAB.ER.24H PO ONE (15:49)
[2020-12-10] MEDS ORDERED: HALO5AMP2 PO (18:12)
[2020-12-10] MEDS ORDERED: HYDR-3920 PO (18:12)
[2020-12-10] MEDS ORDERED: ONDA4TAB7 PO (18:12)
[2020-12-10] MEDS ORDERED: PANT40GR PO (18:12)
[2020-12-10] MEDS ORDERED: FUROSEMIDE 20 MG/2 ML IV ONE (18:30)
[2020-12-10] MEDS ORDERED: HYDR-2214 PO (20:04)
[2020-12-10] MEDS: LOVASTATIN 20 MG TABLET PO SCH (20:22)
[2020-12-10] MEDS: PAROXETINE 20 MG TABLET PO SCH (20:22)
[2020-12-11 00:59] VITALS: BP 156/90
[2020-12-11] MEDS: ACETAMINOPHEN 325 MG TABLET PO PRN (01:56)
[2020-12-11 06:05] LABS: BASOPHILS % (AUTO) 1 % (0-1); EOSINOPHILS % (AUTO) 2 % (1-7); LYMPHOCYTES % (AUTO) 14 % (22-44); MEAN CORPUSCULAR HEMOGLOBIN 32.8 pg (27.0-34.8); MEAN CORPUSCULAR HGB CONC 33.2 g/dL (32.4-35.8); MEAN PLATELET VOLUME 7.9 fL (7.4-10.4); MONOCYTES % (AUTO) 11 % (2-9); NEUTROPHILS % (AUTO) 73 % (42-75); PLATELET COUNT 189 x10^3/uL (130-400); RED BLOOD COUNT 4.46 x10^6/uL (3.82-5.3); RED CELL DISTRIBUTION WIDTH 13.5 % (9.6-15.2)
[2020-12-11 06:24] LABS: ANION GAP 5 mmol/L (5-15); CALCIUM 8.7 mg/dL (8.5-10.1); CHLORIDE 110 mmol/L (98-107)
[2020-12-11 06:26] VITALS: BP 125/90
[2020-12-11 06:27] LABS: CREATININE 0.72 mg/dL (0.55-1.02)
[2020-12-11 08:26] VITALS: BP 149/104
[2020-12-11] MEDS: APIXABAN 5 MG TABLET PO SCH (08:30)
[2020-12-11] MEDS ORDERED: METOPROLOL SUCCINATE 25 MG TAB.ER.24H PO SCH (09:00)
[2020-12-11] MEDS ORDERED: METO25TA91 PO (11:46)
[2020-12-11] MEDS ORDERED: HYDR12.517 PO (11:48)
[2020-12-11] MEDS ORDERED: LOSA25TA25 PO (11:48)
[2020-12-11 12:26] VITALS: BP 153/97
== END 2020-12-11 14:15 | disposition home health service (06) | DRG 292 ==
LOC: ED 17:55 → INTOOBSV 18:59 → OBSVTOIN 18:59 → EDIP 18:59 → 5SO 20:02
PROVIDERS: ADMIT Internal Medicine; ATTEND Internal Medicine
DX: I11.0 Hypertensive heart disease with heart failure (principal); D68.69 Other thrombophilia; I48.20 Chronic atrial fibrillation, unspecified; I50.23 Acute on chronic systolic (congestive) heart failure; E78.5 Hyperlipidemia, unspecified; F03.90 Unspecified dementia, unspecified severity, without behavioral disturbance, psychotic disturbance, mood disturbance, and anxiety; G89.29 Other chronic pain; I95.9 Hypotension, unspecified; M54.9 Dorsalgia, unspecified; I25.10 Atherosclerotic heart disease of native coronary artery without angina pectoris; J44.9 Chronic obstructive pulmonary disease, unspecified; K21.9 Gastro-esophageal reflux disease without esophagitis; Z72.0 Tobacco use; Z79.01 Long term (current) use of anticoagulants; Z79.899 Other long term (current) drug therapy
CPT/HCPCS: 36415; 71045; 80048; 80053; 81003; 83735; 83880; 84100; 84436; 84443; 84484; 85025; 85610; 85730; 93005; 93306; 96374; 96375; 99291; G0378; J1940; J7030